=== PATIENT | male | born 1995 | race Caucasian/White ===

== ENCOUNTER 2022-12-11 21:42 | Emergency (ER) | payer OTHER ==
[~2022-12-11] VITALS: Ht 175.3 cm; Wt 67.5 kg
[2022-12-11 22:54] VITALS: BP 100/65; PULSE 71; RESP 16; TEMP 97.8; O2SAT 100
[2022-12-12] MEDS ORDERED: TETANUS, DIPHTHERIA, PERTUSSIS VAC/PF 0.5ML (>10YR OLD) IM ONE
[2022-12-12] MEDS ORDERED: BACITRACIN ZINC OINT UDPKT TOP ONE
[2022-12-12] MEDS ORDERED: LIDOCAINE HCL/PF 1% 10 MG/ML 5ML VIAL INFIL ONE
[2022-12-12] MEDS ORDERED: BO1 TP (00:32)
== END 2022-12-12 00:49 | disposition home or self-care (01) ==
LOC: ER 21:42
DX: S61.012A Laceration without foreign body of left thumb without damage to nail, initial encounter (principal); X58.XXXA Exposure to other specified factors, initial encounter; Y93.89 Activity, other specified; Y92.89 Other specified places as the place of occurrence of the external cause; Y99.8 Other external cause status
CPT/HCPCS: 99283; 90715; 12002; 90471; J3490